=== PATIENT | male | born 1985 | race African-American/Black ===

== ENCOUNTER 2016-11-17 11:01 | Emergency (ER) | payer MEDICAID ==
[~2016-11-17] VITALS: Ht 190.5 cm; Wt 127.0 kg
[2016-11-17 11:12] VITALS: BP 135/64
== END 2016-11-17 15:07 | disposition home or self-care (01) ==
LOC: ER 12:22
DX: S16.1XXA Strain of muscle, fascia and tendon at neck level, initial encounter (principal); S39.012A Strain of muscle, fascia and tendon of lower back, initial encounter; M79.632 Pain in left forearm; I10 Essential (primary) hypertension; F17.200 Nicotine dependence, unspecified, uncomplicated; V49.60XA Unspecified car occupant injured in collision with unspecified motor vehicles in traffic accident, initial encounter; Y93.89 Activity, other specified; Y99.8 Other external cause status; Y92.89 Other specified places as the place of occurrence of the external cause
CPT/HCPCS: 99283